=== PATIENT | female | born 1950 | race Caucasian/White ===

== ENCOUNTER 2021-08-24 11:24 | Emergency (ER) | payer MEDICARE ==
[~2021-08-24] VITALS: Ht 162.6 cm; Wt 60.0 kg
[2021-08-24] MEDS ORDERED: DEXAMETHASONE SOD PHOS INJ 4 MG/ML SDV IM ONE (12:00)
[2021-08-24] MEDS ORDERED: HYDROCODONE/APAP 5MG-325MG TAB PO ONE ×2 (12:00→12:15)
[2021-08-24] MEDS ORDERED: ONDANSETRON HCL 4 MG ORAL DISINTEGRATING TAB PO ONE (12:00)
[2021-08-24] MEDS ORDERED: ZANAFLEX4 MG PO (12:13)
[2021-08-24] MEDS ORDERED: PREDNISONE20 MG PO (12:13)
[2021-08-24] MEDS ORDERED: PREDNISONE 20 MG TAB PO ONE (12:15)
== END 2021-08-24 12:43 | disposition home or self-care (01) ==
LOC: FSED 11:55
DX: M48.061 Spinal stenosis, lumbar region without neurogenic claudication (principal); G89.29 Other chronic pain; I10 Essential (primary) hypertension; J44.9 Chronic obstructive pulmonary disease, unspecified; E78.5 Hyperlipidemia, unspecified; K21.9 Gastro-esophageal reflux disease without esophagitis; F41.9 Anxiety disorder, unspecified; Z85.89 Personal history of malignant neoplasm of other organs and systems
CPT/HCPCS: 99282; J7512; Q0162